=== PATIENT | male | born 1970 | race Caucasian/White ===

== ENCOUNTER 2018-07-14 01:22 | Emergency (ER) | payer MEDICARE, OTHER ==
[~2018-07-14] VITALS: Ht 172.7 cm; Wt 68.0 kg
[2018-07-14 01:30] VITALS: BP 133/98
--- NOTE | 2018-07-14 01:30 | NUR ---
PT BIB C/O "THEY ARE NOT GIVING ME MY DILAUDID". PT FROM [facility]. DENIES N/V/D. +ETOH. PT DENIES PAIN. PT WAS DRINKING VODKA OUT OF A BOTTLE AND PLACED THE BOTTLE IN HIS BACKPACK. PT IN BED 6. WILL CONTINUE TO MONITOR.
--- NOTE | 2018-07-14 01:42 | NUR ---
CALLED [facility] FOR [facility]ORT ETA [phone] TRIP [phone]
--- NOTE | 2018-07-14 02:51 | NUR ---
Patient discharged to home in stable condition. Written and verbal after care instructions given. Patient verbalizes understanding of instruction.
--- NOTE | 2018-07-14 02:51 | NUR ---
REPORT GIVEN TO [facility] FOR MARLA. [facility] W/ NO S/S OF DISTRESS NOTED.
== END 2018-07-14 02:53 | disposition home or self-care (01) ==
LOC: ER 01:24
DX: G89.29 Other chronic pain (principal); F10.129 Alcohol abuse with intoxication, unspecified; Z76.5 Malingerer [conscious simulation]; Z98.890 Other specified postprocedural states
CPT/HCPCS: 99283; A4606; Z7610

== ENCOUNTER 2019-12-10 22:24 | Emergency (ER) | payer MEDICAID ==
[~2019-12-10] VITALS: Ht 172.7 cm; Wt 68.0 kg
[2019-12-10 22:28] VITALS: BP 157/81
--- NOTE | 2019-12-10 23:03 | NUR ---
Patient given written and verbal discharge instructions. Patient verbalizes understanding of instructions. Patient is using his wheelchair. Refuses offer of fpc placement. Patient given list of available shelters in surrounding area.
== END 2019-12-10 23:04 | disposition home or self-care (01) ==
LOC: ER 22:24
DX: Z43.3 Encounter for attention to colostomy (principal); Z98.890 Other specified postprocedural states; Z59.0 Homelessness

== ENCOUNTER 2019-12-19 20:55 | Emergency (ER) | payer MEDICAID ==
[~2019-12-19] VITALS: Ht 175.3 cm; Wt 57.2 kg
[2019-12-19 21:05] VITALS: BP 127/86
== END 2019-12-19 21:14 | disposition home or self-care (01) ==
LOC: ER 20:56
DX: Z43.3 Encounter for attention to colostomy (principal); Z98.890 Other specified postprocedural states

== ENCOUNTER 2019-12-22 23:30 | Emergency (ER) | payer MEDICAID ==
[~2019-12-22] VITALS: Ht 175.3 cm; Wt 59.0 kg
[2019-12-22 23:46] VITALS: BP 106/69
[2019-12-23] MEDS ORDERED: LIDOCAINE 2% JEL UROJET 10 ML MM ONE ×2 (00:22→00:30)
[2019-12-23] MEDS ORDERED: HYDROMORPHONE HCL 2 MG TABLET PO PRN (00:30)
[2019-12-23] MEDS ORDERED: HYDROMORPHONE HCL 2 MG TABLET ONE (00:33)
[2019-12-23 00:54] LABS: APPEARANCE,URINE Clear (CLEAR); BILIRUBIN,URINE Negative (NEGATIVE); BLOOD, URINE Moderate Ery/uL (NEGATIVE); COLOR,URINE Yellow (YELLOW); KETONES,URINE Negative (NEGATIVE); LEUKOCYTE ESTERASE ,URINE Small (NEGATIVE); NITRITE, URINE Positive (NEGATIVE); PROTEIN,URINE Trace mg/dl (NEGATIVE); UGLUCOSE Negative (NEGATIVE); UROBILINOGEN,URINE 0.2 EU/dL (0.2)
[2019-12-23 01:28] LABS: RBC,URINE 0-2 /HPF (0-2)
[2019-12-23 01:29] LABS: BACTERIA,URINE Many /HPF (None Seen); SQUAMOUS EPITHELIAL CELL,UR Rare /HPF (None Seen)
== END 2019-12-23 00:55 | disposition home or self-care (01) ==
LOC: ER 23:33
DX: T83.091A Other mechanical complication of indwelling urethral catheter, initial encounter (principal); G89.29 Other chronic pain; Z98.890 Other specified postprocedural states
CPT/HCPCS: 51702; 81001; 99284; J3490; 81000-TC; 87086-TC

== ENCOUNTER 2020-01-12 13:07 | Inpatient (IN) | payer MEDICAID ==
[~2020-01-12] VITALS: Ht 175.3 cm; Wt 53.5 kg
--- NOTE | 2020-01-12 13:10 | NUR ---
PT BIB SELF C/O ABDOMINAL PAIN AND LEAKING COLOSTOMY, PT IS AAOX4, NOT IN RESPIRATORY DISTRESS, HOOKED TO MONITOR, KEPT RESTED AND COMFORTABLE, WILL CONTINUE TO MONITOR.
--- NOTE | 2020-01-12 13:35 | NUR ---
URINAL GIVEN BUT UNABLE TO PROVIDE URINE SPECIMEN THIS TIME.
[2020-01-12 13:41] LABS: BASOPHILS # (AUTO) 0.1 /CMM (0.0-0.2); BASOPHILS % (AUTO) 0.5 % (0.0-2.0); EOSINOPHILS % (AUTO) 0.1 % (0.0-6.0); HEMATOCRIT 38 % (39-51); HEMOGLOBIN 12.7 g/dL (13.5-17.5); LYMPHOCYTES # (AUTO) 0.8 /CMM (0.8-4.8); LYMPHOCYTES % (AUTO) 6.3 % (20.0-44.0); MEAN CORPUSCULAR HGB CONC 33 g/dl (31.0-36.0); MEAN CORPUSCULAR VOLUME 99 fL (80-96); MONOCYTES % (AUTO) 7.7 % (2.0-12.0); NEUTROPHILS # (AUTO) 10.9 /CMM (1.8-8.9); NEUTROPHILS % (AUTO) 85.4 % (43.0-81.0); PLATELET COUNT (AUTO) 120 /CMM (150-450); RED BLOOD CELL COUNT(AUTO) 3.89 MIL/uL (4.5-6.0); WHITE BLOOD COUNT (AUTO) 12.7 K/uL (4.3-11.0)
[2020-01-12 13:50] LABS: CALCIUM, SERUM 8.5 mg/dL (8.5-10.1); CREATININE 0.6 mg/dL (0.6-1.3); POTASSIUM 3.3 mmol/L (3.5-5.1)
[2020-01-12 13:55] LABS: ALBUMIN 3.6 g/dL (3.4-5.0); BILIRUBIN,DIRECT 0.2 mg/dL (0.0-0.2); BILIRUBIN,TOTAL 0.6 mg/dL (0.2-1.0)
[2020-01-12] MEDS ORDERED: ONDANSETRON HCL/PF 4 MG/2 ML VIAL IV ONE (14:00)
[2020-01-12] MEDS ORDERED: KETOROLAC TROMETHAMINE INJ 30 MG/ML VIAL IV ONE (14:00)
[2020-01-12] MEDS ORDERED: IV NS 0.9% 1,000 ML IV ONE (14:00)
[2020-01-12] MEDS ORDERED: ONDANSETRON HCL/PF 4 MG/2 ML VIAL ONE (14:28)
[2020-01-12] MEDS ORDERED: KETOROLAC TROMETHAMINE 15 MG/ML VIAL ONE (14:28)
[2020-01-12] MEDS ORDERED: PIPERACILLIN /TAZOBACTAM 3.375 G in IV D5W 50 ML IV ONE (14:30)
[2020-01-12] MEDS ORDERED: VANCOMYCIN 1 GM in IV D5W 250 ML IV ONE (14:30)
--- NOTE | 2020-01-12 14:35 | NUR ---
IV LINE ESTABLISHED BLOOD DRAWN AND SENT TO LAB
--- NOTE | 2020-01-12 15:10 | NUR ---
CALLED [facility], PAGED VLADIMIR VERDUZCO DNP
[2020-01-12] MEDS ORDERED: HYDR4TAB4 PO (15:19)
[2020-01-12] MEDS ORDERED: PHEN100C4 PO (15:19)
[2020-01-12 15:39] LABS: BILIRUBIN,URINE Negative (NEGATIVE); BLOOD, URINE Small Ery/uL (NEGATIVE); COLOR,URINE Yellow (YELLOW); KETONES,URINE Negative (NEGATIVE); LEUKOCYTE ESTERASE ,URINE Moderate (NEGATIVE); NITRITE, URINE Positive (NEGATIVE); PROTEIN,URINE Negative (NEGATIVE); UGLUCOSE Negative (NEGATIVE); UROBILINOGEN,URINE 0.2 EU/dL (0.2)
[2020-01-12 15:41] LABS: APPEARANCE,URINE HAZY (CLEAR)
[2020-01-12 15:48] LABS: BACTERIA,URINE Many /HPF (None Seen); SQUAMOUS EPITHELIAL CELL,UR Few /HPF (None Seen)
--- NOTE | 2020-01-12 17:36 | NUR ---
BED 316-1
--- NOTE | 2020-01-12 17:45 | NUR ---
REPORT GIVEN TO MATT GOMEZ FOR MARLA.
--- NOTE | 2020-01-12 18:30 | NUR ---
MS HEADING MAKER NOTES Received Patient resting in bed. A/O x 4. VS stable with no acute distress. Breathing even and unlabored on room air with no respiratory distress. Denies pain. No signs and symptoms of pain. Colostomy in place and intact. Flroes Cath in place and patent. 18g PIV on RFA clean, intact, patent and flushing well. Safety precautions in place. Bed locked and set to lowest position with side rails x 2 up. All needs rendered at this time. Call light within reach. Will endorse to oncoming shift to complete admission.
[2020-01-12] MEDS ORDERED: ACETAMINOPHEN 325 MG TABLET PO PRN (19:00)
[2020-01-12] MEDS ORDERED: Z GUARD REMEDY 2 OZ OINT TP PRN (19:00)
[2020-01-12] MEDS ORDERED: ONDANSETRON HCL/PF 4 MG/2 ML VIAL IVP PRN (19:00)
[2020-01-12] MEDS ORDERED: ZOLPIDEM TARTRATE 5 MG TABLET PO PRN (19:00)
[2020-01-12 19:06] VITALS: BP 90/59
[2020-01-12 20:00] VITALS: BP 109/71
[2020-01-12] MEDS ORDERED: FEE PK DOSING 1 MIN EA MC ONE (20:07)
[2020-01-12] MEDS ORDERED: CEFEPIME 2 GM in IV D5W 100 ML IV SCH (20:30)
[2020-01-12] MEDS: HYDROMORPHONE HCL 2 MG TABLET PO PRN (20:51)
[2020-01-12] MEDS: ENOXAPARIN SODIUM 40 MG/0.4 ML DISP.SYRIN SQ SCH (23:30)
[2020-01-12] MEDS: IV NS 0.9% 1,000 ML IV PRN (23:31)
[2020-01-12] MEDS: PHENYTOIN EXTENDED RELEASE 100 MG CAPSULE PO SCH (23:32)
[2020-01-12] MEDS: VANCOMYCIN 0.75 GM in IV D5W 250 ML IV SCH (23:34)
[2020-01-13] MEDS: HYDROMORPHONE HCL 2 MG TABLET PO PRN ×4 (00:34→22:03)
--- NOTE | 2020-01-13 01:59 | NUR ---
MS/TELE/RN PATIENT IS SLEEPING AT THIS TIME, APPEAR COMFORTABLE, NO DISTRESS NOTED, CALL LIGHT IN REACH. WILL CONTINUE TO MONITOR.
--- NOTE | 2020-01-13 06:21 | NUR ---
MS/TELE/RN PATIENT IS SLEEPING AT THIS TIME, APPEAR COMFORTABLE, NO SIGNS OF DISTRESS NOTED, CALL LIGHT IN REACH, ALL NEEDS ATTENDED AT THIS TIME, WILL CONTINUE TO MONITOR.
[2020-01-13 07:19] LABS: BASOPHILS # (AUTO) 0.1 /CMM (0.0-0.2); BASOPHILS % (AUTO) 0.6 % (0.0-2.0); EOSINOPHILS % (AUTO) 1.8 % (0.0-6.0); HEMATOCRIT 33 % (39-51); HEMOGLOBIN 11.1 g/dL (13.5-17.5); LYMPHOCYTES % (AUTO) 12.1 % (20.0-44.0); MEAN CORPUSCULAR HGB CONC 33 g/dl (31.0-36.0); MEAN CORPUSCULAR VOLUME 100 fL (80-96); MONOCYTES # (AUTO) 0.7 /CMM (0.1-1.30); MONOCYTES % (AUTO) 8.4 % (2.0-12.0); NEUTROPHILS # (AUTO) 6.2 /CMM (1.8-8.9); NEUTROPHILS % (AUTO) 77.1 % (43.0-81.0); PLATELET COUNT (AUTO) 99 /CMM (150-450); RED BLOOD CELL COUNT(AUTO) 3.34 MIL/uL (4.5-6.0)
[2020-01-13 07:41] LABS: CALCIUM, SERUM 7.7 mg/dL (8.5-10.1); CREATININE 0.6 mg/dL (0.6-1.3); MAGNESIUM 1.6 mg/dL (1.8-2.4); PHOSPHORUS 2.9 mg/dL (2.5-4.9)
--- NOTE | 2020-01-13 07:48 | NUR ---
rn notes patient received on room air, no sob noted, patient denies pain at this time. FC present and is draining, colostomy present and patient does most of the work on it. R FA 19 with 75 ml per hour running at this time. Patient has link with 400 and NOC EDITOR MAP took it to the safe. Bed at the lowest setting, call light within reach, side rails up x2.
[2020-01-13 07:52] LABS: POTASSIUM 2.8 mmol/L (3.5-5.1)
[2020-01-13 08:00] VITALS: BP 124/78
[2020-01-13] MEDS: VANCOMYCIN 0.75 GM in IV D5W 250 ML IV SCH ×3 (08:45→23:45)
--- NOTE | 2020-01-13 09:40 | NUR ---
WOUND CARE CONSULT: PT PRESENTS WITH COLOSTOMY WITH POUCH INTACT(SLIGHT REDNESS AROUND) AND LEFT BUTTOCK STAGE 3 ULCER, PRESENT ON ADMISSION. PT IS ABLE TO TURN AND REPOSITION IN BED AND IS CONTINENT WITH COLOSTOMY AND HERCULES CATH. RECOMMENDATIONS MADE FOR SKIN PROTECTION AND WOUND CARE. DISCUSSED WITH NURSING STAFF. DR KAVYA WATKINS NOTIFIED OF SURGICAL CONSULT. WILL SEE PRN. MARTINEZ IN AGREEMENT WITH PLAN OF CARE. Addendum: 01/13/20 at 0942 by ARIS CANAS WNDNU Amended: Links added.
[2020-01-13] MEDS ORDERED: HYDROGEL DRESSING 90 GM TUBE TP PRN (10:00)
[2020-01-13] MEDS: HYDROGEL DRESSING 90 GM TUBE TP SCH (10:09)
[2020-01-13] MEDS: Magnesium 1GM/D5W 100ML PREMIX 100 ML IV SCH ×2 (11:43→13:26)
[2020-01-13] MEDS ORDERED: POTASSIUM CHLORIDE 20 MEQ TAB.PRT.SR PO SCH (12:00)
[2020-01-13] MEDS: POTASSIUM CL. PREMIX PERIPHER. 50 ML IV SCH ×6 (13:02→18:02)
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
[2020-01-13 16:00] VITALS: BP 144/87
--- NOTE | 2020-01-13 17:32 | NUR ---
rn notes patient remains on room air, no sob noted, a/o x4 at this time. F/C present and is draining, colostomy is done by patient. regular diet with R FA 18 at 75 ml per hour. potassium replaced. vanco trough at 10. patient apparently has 450 of link that was sent in the vault. social media strategist able to talk to patient. Bed at the lowest setting, call light within reach, side rails up x2
[2020-01-13 20:00] VITALS: BP 131/80
--- NOTE | 2020-01-13 20:42 | NUR ---
MS/TELE/RN ON INITIAL ROUNDING AT 1930, PATIENT WAS IN BED AWAKE, ALERT, ORIENTED, COMFORTABLE, NO C/O PAIN, NO DISTRESS NOTED, CALL LIGHT IN REACH, WILL MONITOR.
[2020-01-13] MEDS: ENOXAPARIN SODIUM 40 MG/0.4 ML DISP.SYRIN SQ SCH (21:00)
[2020-01-13] MEDS: PHENYTOIN EXTENDED RELEASE 100 MG CAPSULE PO SCH (21:59)
--- NOTE | 2020-01-13 23:15 | NUR ---
MS/TELE/RN PATIENT IS SLEEPING AT THIS TIME, APPEAR COMFORTABLE, NO SIGNS OF DISTRESS NOTED, CALL LIGHT IN REACH. WILL CONTINUE TO MONITOR.
[2020-01-13] MEDS: IV NS 0.9% 1,000 ML IV PRN (23:44)
[2020-01-14 07:17] LABS: CALCIUM, SERUM 9.1 mg/dL (8.5-10.1); CREATININE 0.5 mg/dL (0.6-1.3); MAGNESIUM 1.8 mg/dL (1.8-2.4); POTASSIUM 3.8 mmol/L (3.5-5.1)
--- NOTE | 2020-01-14 07:33 | NUR ---
rn notes pt received on room air, no sob noted, denies pain at this time. a/o x4 with f/c and is draining. R NS @ 75 ml per hour running at this time. latest vanco trough at 10, will continue to give vancomycin. bed at the lowest setting, call light within reach, side rails up x2.
[2020-01-14 08:00] VITALS: BP 155/86
[2020-01-14] MEDS: HYDROGEL DRESSING 90 GM TUBE TP SCH (08:22)
[2020-01-14] MEDS: VANCOMYCIN 0.75 GM in IV D5W 250 ML IV SCH (08:22)
--- NOTE | 2020-01-14 13:15 | NUR ---
rn SADIQ notes patient went ama at this time, no sob noted, patient denies pain at this time. Patient with a colostomy bag and Humphries cath. States that he came here with those things. Jameson Vitale aware that patient is going with humphries cath. 450 $ of link with patient along with everything in his list. Patient states that he is not missing anything. IV line removed with minimal bleeding noted.
--- NOTE | 2020-01-14 13:21 | NUR ---
no photos taken because of AMA
== END 2020-01-14 13:20 | disposition left against medical advice (07) | DRG 252 ==
LOC: ER 13:07 → MED 17:35
PROVIDERS: ADMIT Nurse Practitioner Acute Care; ATTEND Nurse Practitioner Acute Care
PROC: 0JB90ZZ Excision of Buttock Subcutaneous Tissue and Fascia, Open Approach (ICD-10-PCS; principal; 2020-01-14)
DX: K94.02 Colostomy infection (principal); L89.323 Pressure ulcer of left buttock, stage 3; D69.6 Thrombocytopenia, unspecified; E87.1 Hypo-osmolality and hyponatremia; E83.42 Hypomagnesemia; E83.51 Hypocalcemia; L03.311 Cellulitis of abdominal wall; N39.0 Urinary tract infection, site not specified; E87.6 Hypokalemia; Y83.3 Surgical operation with formation of external stoma as the cause of abnormal reaction of the patient, or of later complication, without mention of misadventure at the time of the procedure; G89.4 Chronic pain syndrome; Y73.8 Miscellaneous gastroenterology and urology devices associated with adverse incidents, not elsewhere classified; F19.10 Other psychoactive substance abuse, uncomplicated; D53.9 Nutritional anemia, unspecified; F10.20 Alcohol dependence, uncomplicated; G40.909 Epilepsy, unspecified, not intractable, without status epilepticus; Z59.0 Homelessness; F17.200 Nicotine dependence, unspecified, uncomplicated
CPT/HCPCS: 36415; 71045-TC; 80048-TC; 80061-TC; 80076-TC; 80202-TC; 81000-TC; 83605-TC; 83690-TC; 83735-TC; 84100-TC; 85025-TC; 87040-TC; 87081-TC; 87086-TC; 87186-TC; A4362; A6248; G0378; J0692; J1650; J1885; J2405; J2543; J3370; J3475; J3480; J7030; J7060

== ENCOUNTER 2020-01-14 22:08 | Inpatient (IN) | payer MEDICAID ==
[~2020-01-14] VITALS: Ht 175.3 cm; Wt 51.7 kg
[~2020-01-14 22:08] MED LIST: HYDR4TAB4 PO; PHEN100C4 PO
[2020-01-14 23:43] LABS: BASOPHILS % (AUTO) 0.6 % (0.0-2.0); EOSINOPHILS % (AUTO) 1.5 % (0.0-6.0); HEMATOCRIT 40 % (39-51); HEMOGLOBIN 13.4 g/dL (13.5-17.5); LYMPHOCYTES # (AUTO) 0.9 /CMM (0.8-4.8); LYMPHOCYTES % (AUTO) 11.1 % (20.0-44.0); MEAN CORPUSCULAR HGB CONC 34 g/dl (31.0-36.0); MEAN CORPUSCULAR VOLUME 100 fL (80-96); MONOCYTES # (AUTO) 0.5 /CMM (0.1-1.30); MONOCYTES % (AUTO) 6.4 % (2.0-12.0); NEUTROPHILS # (AUTO) 6.6 /CMM (1.8-8.9); NEUTROPHILS % (AUTO) 80.4 % (43.0-81.0); PLATELET COUNT (AUTO) 140 /CMM (150-450); RED BLOOD CELL COUNT(AUTO) 3.98 MIL/uL (4.5-6.0); WHITE BLOOD COUNT (AUTO) 8.2 K/uL (4.3-11.0)
[2020-01-14 23:54] LABS: CALCIUM, SERUM 9.3 mg/dL (8.5-10.1); CREATININE 0.6 mg/dL (0.6-1.3); POTASSIUM 3.8 mmol/L (3.5-5.1)
[2020-01-15] LABS: ALBUMIN 3.8 g/dL (3.4-5.0); BILIRUBIN,DIRECT 0.2 mg/dL (0.0-0.2); BILIRUBIN,TOTAL 0.8 mg/dL (0.2-1.0); TOTAL PROTEIN, SERUM 8.6 g/dL (6.4-8.2)
[2020-01-15] MEDS ORDERED: VANCOMYCIN 1 GM in IV D5W 250 ML IV ONE ×2
[2020-01-15] MEDS ORDERED: VANCOMYCIN 1 GM VIAL ONE (00:03)
--- NOTE | 2020-01-15 00:37 | NUR ---
REPORT GIVEN TO CHRISTINE GUTIERREZNETWORK SYSTEMS CONSULTANT NURSE FOR MARLA. PT WILL BE TRANSPORTED TO 3RD FLOOR
--- NOTE | 2020-01-15 00:54 | NUR ---
PT TRANSPORTED TO 3RD FLOOR
[2020-01-15 00:55] VITALS: BP 152/73
--- NOTE | 2020-01-15 00:55 | NUR ---
MS/RN OPENING NOTES PATIENT RECEIVED FROM ER IN WHEELCHAIR, ALERT AND ORIENTED X 3. NO SOB, NO LABORED BREATHING NOTED. PATIENT IN NO DISTRESS AT THE MOMENT. PATIENT HAS IV ACCESS ON RIGHT FOREARM #18G INTACT AND PATENT. PATIENT HAS A HERCULES CATHETER IN PLACE AND DRAINING CLEAR YELLOW URINE. PATIENT HAS A COLOSTOMY BAG IN PLACE WITH REDNESS AREA SITE. PATIENT ON ROOM AIR SATURATING AT 94%. SAFETY MEASURES ARE IN PLACE, BED HAS BEEN LOCKED AND PLACED IN LOWEST POSITION, SIDE RAILS UP X 2. CALL LIGHT IS WITHIN REACH. WILL CONTINUE TO MONITOR.
--- NOTE | 2020-01-15 00:55 | NUR ---
MS/RN NOTES PATIENT TRANSFERRED TO UNIT FROM ED, VIA WHEELCHAIR. NO SIGNS OF SOB, PATIENT IN NO DISTRESS AT THE MOMENT. PATIENT IS ALERT AND ORIENTED X 4. WILL CONTINUE TO MONITOR.
--- NOTE | 2020-01-15 01:00 | NUR ---
RN NOTES NOTICED PT. COLOSTOMY BAG HAS TAPE ON ITS SIDE, PT. STATED HE PUT THE TAPE AND HE JUST CHANGE THE COLOSTOMY BAG, OFFERED TO CHANGE IT BUT PT. REFUSED
[2020-01-15] MEDS ORDERED: HYDROCODONE/APAP 5/325MG 1 EACH TABLET PO PRN (01:30)
[2020-01-15] MEDS ORDERED: ONDANSETRON HCL/PF 4 MG/2 ML VIAL IVP PRN (01:30)
[2020-01-15] MEDS ORDERED: MAGNESIUM HYDROXIDE 30 ML UDC PO PRN (01:30)
[2020-01-15] MEDS ORDERED: Z GUARD REMEDY 2 OZ OINT TP PRN (01:30)
[2020-01-15] MEDS ORDERED: ZOLPIDEM TARTRATE 5 MG TABLET PO PRN (01:30)
[2020-01-15] MEDS ORDERED: MAG HYDROX/AL HYDROX/SIMETH 30 ML UDC PO PRN (01:30)
[2020-01-15] MEDS ORDERED: ACETAMINOPHEN 325 MG TABLET PO PRN (01:30)
[2020-01-15] MEDS: HYDROMORPHONE HCL 2 MG TABLET PO PRN ×3 (02:23→12:14)
--- NOTE | 2020-01-15 02:33 | NUR ---
MS/RN NOTES PATIENT COMPLAIN OF GENERALIZED PAIN, DILAUDID 2MG PO GIVEN ORDERED.
[2020-01-15] MEDS ORDERED: D5W IV SCH (05:00)
[2020-01-15] MEDS ORDERED: VANCOMYCIN HCL IV SCH (05:00)
--- NOTE | 2020-01-15 06:05 | NUR ---
MS/RN CLOSING NOTES PATIENT IS RESTING IN BED, ALERT AND ORIENTED X 3. NO SOB, NO LABORED BREATHING NOTED. PATIENT IN NO DISTRESS AT THE MOMENT. PATIENT HAS IV ACCESS ON RIGHT FOREARM #18G INTACT AND PATENT. PATIENT HAS A HERCULES CATHETER IN PLACE AND DRAINING CLEAR YELLOW URINE. PATIENT HAS A COLOSTOMY BAG IN PLACE. PATIENT ON ROOM AIR SATURATING WELL. SAFETY MEASURES ARE IN PLACE, BED HAS BEEN LOCKED AND PLACED IN LOWEST POSITION, SIDE RAILS UP X 2. CALL LIGHT IS WITHIN REACH. PATIENTS NEEDS HAVE BEEN MET DURING SHIFT. WILL ENDORSE CARE TO DAY SHIFT NURSE.
[2020-01-15] MEDS ORDERED: PANTOPRAZOLE 40 MG TABLET.DR PO SCH (07:30)
[2020-01-15 08:00] VITALS: BP 140/71
--- NOTE | 2020-01-15 08:00 | NUR ---
MS/RN Opening Note Received patient in bed, AO x 3 able to responds al stimuli. Pt. c/o abd pain 10 out 10 and given Dilaudid 2mg at 0744. Skin is warm to touch, kept clean/dry, changed colostomy bag and took picture on colostomy site. Respiratory even and unlabored in room air, no sob or distress observed. Keep bed in lock with elevated HOB for secure airway and aspiration precaution. Call light within reach, will continue to monitor.
[2020-01-15] MEDS ORDERED: FEE PK DOSING 1 MIN EA MC ONE (08:16)
--- NOTE | 2020-01-15 08:58 | NUR ---
WOUND CARE CONSULT: PT PRESENTS WITH STAGE 3 ULCER TO LEFT BUTTOCK, REDNESS AND ADHESIVE TAPE DEBRIS ON ABDOMEN AROUND COLOSTOMY SITE. OSTOMY HAD SMALL AMOUNT OF [place] STOOL. SKIN WAS CLEANSED AND ADHESIVE DEBRIS REMOVED. POUCH WAS CHANGED. RECOMMEND SURGICAL CONSULT. DR KAVYA WATKINS NOTIFIED OF PT READMISSION. PT IS INDEPENDENT WITH BED MOBILITY AND CONTINENT AT THIS TIME WITH OSTOMY AND HERCULES CATH. PT STATES HAD RECENT DIARRHEA RECTALLY. DR WATKINS NOTIFIED. RECOMMENDATIONS MADE FOR SKIN PROTECTION AND WOUND CARE. DISCUSSED WITH NURSING STAFF. WILL SEE PRN. MARTINEZ IN AGREEMENT WITH PLAN OF CARE. Addendum: 01/15/20 at 0901 by ARIS CANAS WNDNU Amended: Links added.
[2020-01-15 09:18] LABS: CALCIUM, SERUM 8.6 mg/dL (8.5-10.1); CREATININE 0.5 mg/dL (0.6-1.3); POTASSIUM 3.4 mmol/L (3.5-5.1)
[2020-01-15] MEDS: VANCOMYCIN 0.75 GM in IV D5W 250 ML IV SCH ×2 (09:18→17:00)
[2020-01-15] MEDS ORDERED: HYDROGEL DRESSING 90 GM TUBE TP PRN (09:30)
[2020-01-15] MEDS ORDERED: HYDROGEL DRESSING 90 GM TUBE TP SCH (09:30)
--- NOTE | 2020-01-15 14:00 | NUR ---
MS RN NOTES RECEIVED TRANSFER OF PATIENT CARE AT 1400 FROM MATT LOWERY. PATIENT MEDICALLY STABLE. WILL CONTINUE TO MONITOR PATIENT.
[2020-01-15 16:00] VITALS: BP 111/72
--- NOTE | 2020-01-15 17:45 | NUR ---
MS RN NOTES PATIENT LEAVING AMA. PATIENT STATES HE HAS TO GO TAKE CARE OF SOME BUSINESS AND BE BACK IN ABOUT ONE HOUR. CHARGE NURSE AWARE. PATIENT HAS BEEN INFORMED THAT BY LEAVING HOSPITAL GROUNDS HE HAS TO SIGN AMA FORM AND TAKE ALL HIS BELONGINGS. PATIENT VERBALIZED UNDERSTANDING AND SIGNED AMA. ALL BELONGINGS ACCOUNTED FOR AND RETURNED. PATIENT SIGNED VALUABLE FORM. BEFORE LEAVING IV ACCESS WAS REMOVED TOGETHER WITH THE WRISTBAND.
--- NOTE | 2020-01-15 18:03 | NUR ---
MS RN NOTES INCIDENT REPORT CREATED
[2020-01-15] MEDS ORDERED: PHENYTOIN EXTENDED RELEASE 100 MG CAPSULE PO SCH (22:00)
== END 2020-01-15 17:51 | disposition left against medical advice (07) | DRG 252 ==
LOC: ER 22:08 → MED 01-15 00:19
PROVIDERS: ADMIT Nurse Practitioner Acute Care; ATTEND Nurse Practitioner Acute Care
DX: K94.02 Colostomy infection (principal); L89.323 Pressure ulcer of left buttock, stage 3; D69.6 Thrombocytopenia, unspecified; L03.311 Cellulitis of abdominal wall; E87.1 Hypo-osmolality and hyponatremia; Y83.3 Surgical operation with formation of external stoma as the cause of abnormal reaction of the patient, or of later complication, without mention of misadventure at the time of the procedure; Y73.8 Miscellaneous gastroenterology and urology devices associated with adverse incidents, not elsewhere classified; Y92.009 Unspecified place in unspecified non-institutional (private) residence as the place of occurrence of the external cause; N39.0 Urinary tract infection, site not specified; D53.9 Nutritional anemia, unspecified; E87.6 Hypokalemia; F10.10 Alcohol abuse, uncomplicated; Y90.9 Presence of alcohol in blood, level not specified; R74.0 Nonspecific elevation of levels of transaminase and lactic acid dehydrogenase [LDH]; G40.909 Epilepsy, unspecified, not intractable, without status epilepticus; F19.11 Other psychoactive substance abuse, in remission; Z59.0 Homelessness; G89.4 Chronic pain syndrome; F17.200 Nicotine dependence, unspecified, uncomplicated
CPT/HCPCS: 36415; 80048-TC; 80076-TC; 85025-TC; 85730-TC; 87081-TC; A6248; G0378; J3370; J7050; J7060